=== PATIENT | female | born 1985 | race Hispanic/Latino ===

== ENCOUNTER 2017-02-03 05:36 | Inpatient (IN) | payer OTHER ==
[~2017-02-03] VITALS: Ht 163.2 cm; Wt 76.2 kg
[~2017-02-03 05:36] MED LIST: FERR325T6 PO; ZAN150T; prenatal vitamins
[2017-02-03] MEDS ORDERED: Lactated Ringer's 1,000 ML IV PRN (05:52)
[2017-02-03] MEDS ORDERED: fentaNYL-PF 50 mCg/mL 2 mL Inj IVPUSH PRN (05:55)
[2017-02-03] MEDS ORDERED: Carboprost 250 mCg/mL Inj IM PRN ×2 (05:55→11:40)
[2017-02-03] MEDS ORDERED: Oxytocin 30 Units/500 mL LR 30 UNITS in IV Premix 1 EACH IV PRN ×2 (05:55→11:40)
[2017-02-03] MEDS ORDERED: Ondansetron 2 mg/mL 2 mL Inj IVPUSH PRN ×2 (05:55→06:40)
[2017-02-03] MEDS ORDERED: Sodium Chloride LOK Flush 10 mL Syringe IVFLUSH PRN (05:55)
[2017-02-03] MEDS ORDERED: Hemorrhage Kit, Post Partum XX ONE ×2 (05:55→11:40)
[2017-02-03] MEDS ORDERED: Oxytocin 10 Unit/mL Inj IM PRN ×2 (05:55→11:40)
[2017-02-03] MEDS ORDERED: Methylergonovine 0.2 mg/mL Inj IM PRN ×2 (05:55→11:40)
[2017-02-03 06:26] LABS: Mean Corpuscular Volume 86.6 fL (81-100)
[2017-02-03] MEDS ORDERED: Lactated Ringer's 1,000 ML IV SCH ×2 (06:36→11:39)
[2017-02-03] MEDS ORDERED: Lactated Ringer's 500 ML IV ONE (06:36)
[2017-02-03] MEDS ORDERED: fentaNYL 2 mCg/mL-Bupiv 0.125% 100 ML EPIDURAL SCH (06:40)
[2017-02-03] MEDS ORDERED: EPHEDrine Sulfate 50 mg/mL Inj IVPUSH PRN (06:40)
[2017-02-03] MEDS ORDERED: Atropine 1 mg/10 mL (Code) Syringe IVPUSH PRN (06:40)
[2017-02-03] MEDS ORDERED: Sodium Chloride LOK Flush 10 mL Syringe IVFLUSH SCH (08:30)
--- NOTE | 2017-02-03 10:12 | PCM.HPANE ---
Patient Data Surgeon Admitting Provider:Alexi Blakely MD Attending Provider:Alexi Blakely MD Primary Care Physician:Alexi Blakely MD Other Provider:Dorcas Pineda Anesthesia Reason for Visit Term Labor Ht/WT & BMI Body Mass Index Allergies Coded Allergies: aspirin (Verified Allergy, 02/03/14) ibuprofen (Verified Allergy, 02/03/14) Uncoded Allergies: asprin and ibuprofen- facial edema (Allergy, Intermediate, 02/03/14) facial edema Past Anesthesia History Anesthesia History: Denies:: Abnormal Airway, Difficult Intubation Diabetes History Hx Diabetes?: No MRSA MRSA: No Medications Reported Medications Ranitidine 150 MG Tablet (Zantac 150 MG Tablet)150 Mg Tab Bid 02/03/14 Ferrous Sulfate-Expunged Drug, Do Not Renew! 325 Mg Tablet.dr325 Mg PO BID 02/03/14 [ vitamins] No Conflict Check Daily 02/03/14 History HEENT History: Denies:: Abnormal Airway Difficult Intubation Hx of Heart Problems?: No Hx of Respiratory Problem?: No Hx Neurologic Problems?: No Hx of GI Problems?: No Hx of Problems?: No HX of Peritoneal Dialysis: No Female Hx: Positive for:: Currently Hx Musculoskeletal Problems?: No Hx of Psycho/Social Problems?: No Hx Surgeries?: No Hx Any Other Health Problems?: No Hx Diabetes: No Hx Alcohol Use: NoHx Substance Use: No Stop/Bang Risk Assessment Category Category 1A: Patient has history of documented sleep apnea, and HAS NOT received any narcotic, sedative or anesthesia administration during this stay. Category 1B: Patient has history of documented sleep apnea, and HAS received any narcotic , sedative or anesthesia administration during this stay Category 2: Patient has SUSPECTED Obstructive Sleep Apnea, and HAS received any narcotic , sedative or anesthesia administration during this stay. Category 3: Patient has SUSPECTED Obstructive Sleep Apnea and HAS NOT received narcotic, sedative or anesthesia administration during this stay. Category 4: Outpatient in Procedural Areas with known sleep apnea or who screen positive for High Risk via the STOP/BANG questionnaire. Exam Exam General Appearance: Alert, Oriented X3, Cooperative, No Acute Distress HEENT/AIRWAY: MP 2 Lungs: Clear to Auscultation Heart: Exam Unremarkable Meds/Labs/Diagnostics Labs Test 02/03/17 05:55 Plan Impression Patient chart reviewed, patient interviewed and anesthestic plan with risks, benefits, and alternatives discussed, and informed consent obtained. ASA Physical Status: ASA1 Normal Healthy Anesthetic Plan: Epidural Bene/Risks/Altern/Consents: Yes HP Complete Prior to Induction: Yes Volodymyr Newman MD Feb 03, 2017 06:36
--- NOTE | 2017-02-03 11:39 | PCM.OBVAG ---
Vaginal Delivery Date of Service Feb 03, 2017 Pre Operative Diagnosis Pre Operative Diagnosis , Multiparous. Procedure Obstetical Procedure: Normal Spontaneous Vaginal Delivery Indication for Procedure Induction: Active labor, AROM (Light Meconium), Progressed normally through labor Findings Obstetrical Findings: (Female), Cord (3 Vessel), Presentation (Vertex) , 1 minute (7), 5 minutes (9), Placenta (Intact/Normal) Analgesia/Medications Obstetrical Anesthesia: Epidural Blood Loss & Administration Blood Admin during procedure: No Post Procedure Plan Post delivery Condition: Mom stable, Baby stable to nursery Alexi Blakely MD Feb 03, 2017 11:39
[2017-02-03] MEDS ORDERED: Benzocaine (Dermoplast) 20% 60 Gm Spray TOPICAL PRN (11:40)
[2017-02-03] MEDS ORDERED: Witch Hazel-Glycerin Pads TOPICAL PRN (11:40)
--- NOTE | 2017-02-03 16:48 | PCM.ANEP1 ---
Post Anesthesia Phase 1 PACU Phase 1 Assessment Anesthetic Administered: Epidural Level of Alertness: Awake, talking SUAREZ's with Equal Strength: Yes Pain: No Pain Scale Score: 4 Nausea or Vomiting: No Oxygen Delivery: Room Air Lungs: Clear to Auscultation Dermatome Level: Full Sensation Summary vss, see nurses record. No apparent anesthesia issues. Onur Agudelo MD Feb 03, 2017 16:48
--- NOTE | 2017-02-03 16:49 | PCM.ANEP2 ---
Post Anesthesia Evaluation ASA/CMS Post Anesthesia VS in Patient's Normal Range?: Yes Resp Stable; Airway Patent?: Yes CV Function & Hydration Stable: Yes Mental Status Recovered?: Yes Pain control Satisfactory?: Yes N/V Control Satisfactory?: Yes Onur Agudelo MD Feb 03, 2017 16:48
[2017-02-03] MEDS ORDERED: LANOlin HPA 7 Gm Ointment TOPICAL PRN (17:45)
[2017-02-03] MEDS: HYDROcodone-APAP 5-325 mg Tablet PO PRN ×2 (20:13→21:11)
[2017-02-04] MEDS: HYDROcodone-APAP 5-325 mg Tablet PO PRN ×4 (01:03→14:45)
[2017-02-04 07:20] LABS: Mean Corpuscular Volume 87.7 fL (81-100)
--- NOTE | 2017-02-04 10:10 | PCM.DC.OB ---
Obstetrical Discharge Summary Date of Service Feb 04, 2017 Date of hospital admission Feb 03, 2017 at 05:54 Date of Discharge: Feb 04, 2017 Providers Admitting Physician: Alexi Blakely MD Primary Care Physician: Alexi Blakely MD Attending Physician: Alexi Blakely MD Problems: (1) Qualifiers: Weeks of gestation: 40 weeks Qualified Code: Z3A.40 - 40 weeks gestation of Status: Resolved ICD Code: Z33.1 Invasive procedures with Epidural Brief History and Physical: 31yo at 40w presented for active labor. Unremarkable medical, surgical social history. complicated by partial previa that changed to low lying with 2.8cm distance in final ultrasound around 36w. ([ vitamins]) DAILY (Reported) Ferrous Sulfate-Expunged Drug, Do Not Renew! (Ferrous Sulfate-Expunged Drug, Do Not Renew!) 325 Mg Tablet.dr 325 MG PO BID (Reported) Ranitidine 150 MG Tablet (Zantac 150 MG Tablet) 150 Mg Tab BID (Reported) Discharge Medications: [place] #20, Docusate as needed. Discharge Diet: No restrictions Discharge Activity-General: Pelvic Rest, Be up and about, Balance rest and activity, Activity as pain allows, Activity as energy allows Alexi Blakely MD Feb 04, 2017 10:10
--- NOTE | 2017-02-04 10:11 | PCM.DIOB ---
Obstetrical Disch Instruction Dates of Hospitalization Date of Hospital Admission Feb 03, 2017 at 05:54 Providers Admitting Physician: Alexi Blakely MD Primary Care Physician: Alexi Blakely MD Attending Physician: Alexi Blakely MD Discharge Diagnosis Problems: (1) Qualifiers: Weeks of gestation: 40 weeks Qualified Code: Z3A.40 - 40 weeks gestation of Status: Resolved ICD Code: Z33.1 Diet Discharge Diet: No restrictions Activity Discharge Activity-General: Be up and about, Balance rest and activity, Activity as pain allows, Activity as energy allows Dressing and Incisional Care Hygiene: May shower Follow Up Plan Follow-up appointment: Weeks (6) Call your provider for: Fever or Chills, Shortness of breath, Heavy vaginal bleeding, Heavy bleeding, Epigastric pain, Excessive constipation, Vaginal discomfort, Red painful breasts Alexi Blakely MD Feb 04, 2017 10:11
[2017-02-04] MEDS ORDERED: DOCU-41 PO (10:12)
[2017-02-04] MEDS ORDERED: HYDR-4003 PO (10:12)
== END 2017-02-04 15:40 | disposition home or self-care (01) | DRG 775 ==
LOC: FBCO 05:36 → FBC 05:54
PROVIDERS: ADMIT Family Medicine; ATTEND Family Medicine
PROC: 10E0XZZ Delivery of Products of Conception, External Approach (ICD-10-PCS; principal; 2017-02-03)
DX: O80 Encounter for full-term uncomplicated delivery (principal); Z3A.40 40 weeks gestation of pregnancy; Z37.0 Single live birth